=== PATIENT | female | born 1970 | race Caucasian/White ===

== ENCOUNTER 2024-10-08 16:08 | Emergency (ER) | payer BC, SELFPAY ==
[2024-10-08] VITALS (77 sets, daily range): BP systolic 74–191; BP diastolic 44–130; PULSE 52–128; RESP 11–22; TEMP 36.2–36.8; O2SAT 94–100
--- NOTE | 2024-10-08 16:00 | DI.CT_ITS ---
Exam(s) CT BRAIN NECK CTA EXAM: CT BRAIN NECK CTA CLINICAL HISTORY: L. arm weak, eval CVA. TECHNIQUE: Imaging Protocol: Axial CT angiography was performed with multi- slice acquisition and multi-planar and/or 3D reconstructions. CONTRAST MATERIAL: Intravenous: Omnipaque 350 Contrast volume:70 mL COMPARISON: No exams were available for comparison FINDINGS: CTA Neck W: Patient is intubated. Distal tip of the endotracheal 2 is above the olayinka. There is a mucous noted at the level the olayinka and within the right mainstem bronchus. Aortic arch anatomy: The aortic arch anatomy is conventional and there is no significant stenosis at the origin of the great vessels off of the aortic arch. No intimal flap evident. Anterior circulation: Both common carotid arteries ascend with normal luminal diameters. At the level the carotid bulbs and proximal internal carotid arteries there is mild plaque without hemodynamically significant stenosis evident. Internal carotid arteries are patent in the upper neck-skull base carotid canals. Posterior circulation: Both vertebral arteries originate in conventional fashion off of the subclavian arteries and there is no obvious stenosis at the origin of the vertebral arteries. Both vertebral arteries exhibit normal luminal diameters within the foramen transversarium. The left vertebral artery is dominant Both vertebral arteries contribute to the formation of the basilar artery at the skull base. CTA Brain W: Anterior circulation: Both internal carotid arteries are patent in the skull base-carotid canals as well as within the cavernous sinuses. The supraclinoid aspects of the ICAs are patent. Both A1 segments are patent as are the anterior cerebral arteries and there is no evidence of aneurysm at the level of the anterior communicating artery. Both middle cerebral arteries are patent with no evidence of significant stenosis nor intraluminal thrombus. There also no aneurysms of these vessels. Posterior circulation: The basilar artery ascends without significant stenosis. Distally gives off superior cerebellar arteries and above this level terminates as posterior cerebral arteries. There is a posterior communicating artery on the right side of the [id number]. There is no evidence of aneurysm at the tip of the basilar artery nor elsewhere in the [id number]. CT BRAIN: There is no evidence of intracranial hemorrhage, mass effect, or shift of midline structures. There are no extra-axial fluid collections. Ventricles are not enlarged or shifted. There are no ring enhancing lesions in the brain and no abnormal meningeal enhancement. There is a vertically orientated vessel extending from the right lateral ventricle to the superior sagittal sinus region. This has appearance of a probable venous angioma. No associated hemorrhage. IMPRESSION: 1. Patent carotid arteries in the neck. No hemodynamically significant stenosis. 2. Patent vertebral arteries. Left vertebral artery is dominant. No evidence of vertebral artery thrombosis nor dissection. 3. Patent intracranial arteries. 4. Right side the venous angioma incidentally noted. Report called by myself to ER physician 10/08/2024 at 5:38 p.m. RADIATION DOSE DELIVERED: 1149.14 mGy.cm Total DLP DATA REPOSITORY: All CT scans at this facility are submitted to the National Radiology Data Registry (NRDR) Dose Index Registry (DIR) with the [employer] (A[employer]). RADIATION OPTIMIZATION: All CT scans at this facility use at least one of these dose optimization techniques: automated exposure control; mA and/or kV adjustment per patient size (includes targeted exams where dose is matched to clinical indication); or iterative reconstruction.
--- NOTE | 2024-10-08 16:15 | RT.EKG_ITS ---
APPROVED REPORT Exam: Resting ECG Reason for Exam: CVA Patient Location: E HR:73 bpm ECG Measurements Heart Rate 73 AXIS DC 176 P 69 QRSd 97 QRS 0 QT 390 T [id number] QTc 431 Conclusion Sinus rhythm, rate 73 No interval abnormalities No STEMI No priors available for comparison
[2024-10-08] MEDS: Ondansetron 4 MG/2 ML VIAL (16:20)
[2024-10-08 16:24] LABS: Abs Immature Grans 0.03 10^3/uL (0.0-0.06); HCT 33.5 % (36.0-46.0); HGB 12.2 g/dL (11.2-15.7); Immature Grans % 0.4 %; MCH 30.7 pg (27.0-33.0); MCHC 36.4 % (32.0-36.0); MCV 84 fL (80-95); MPV 9.7 fL (8.0-11.0); Platelet Count 310 10^3/uL (130-400); RBC 3.98 10^6/uL (3.93-5.22); RDW 12.0 % (11.7-14.6); RDW-SD 36.7 fL; WBC 8.02 10^3/uL (4.4-10.8)
[2024-10-08] MEDS: Midazolam 5 MG/5 ML VIAL (16:24)
[2024-10-08] MEDS: Etomidate 20 MG/10 ML VIAL (16:25)
[2024-10-08 16:35] LABS: INR 1.0 (0.9-1.1); Prothrombin Time 10.3 sec (9.1-11.1)
[2024-10-08 16:48] LABS: ALT 15 U/L (14-59); AST 32 U/L (15-37); Albumin 4.3 g/dL (3.4-5.0); Alkaline Phosphatase 45 U/L (46-116); Anion Gap 15.9 mmol/L (3-11); BUN 8 mg/dL (7-18); Bilirubin, Total 1.3 mg/dL (0.2-1.0); CO2 20.1 mmol/L (21.0-32.0); Calcium 9.4 mg/dL (8.5-10.1); Chloride 85 mmol/L (98-107); Estimated GFR 86.96 (mL/min/1.73m2); Glucose 106 mg/dL (74-106); Magnesium 1.4 mg/dL (1.8-2.4); Potassium 3.4 mmol/L (3.5-5.1); TSH (W/Ref FT4) 0.19 uIU/mL (0.36-3.74); Total Protein 7.7 g/dL (6.4-8.2); Troponin I 6 ng/L (<or=51)
[2024-10-08 16:53] LABS: Sodium 121 mmol/L (136-145)
[2024-10-08] MEDS: Normal Saline Flush 10 ML SYR IVP ×2 (16:57→21:19)
[2024-10-08] MEDS: Omnipaque 350 MG/ML 100 ML BTL IJ (16:57)
[2024-10-08] MEDS: Normal Saline - Diluent 50 ML VIAL IJ (16:57)
--- NOTE | 2024-10-08 17:14 | ED.GENADUL_ITS ---
Discharge Plan Disposition Patient Disposition: Transfer-Acute Inpatient Care Specific Acute Inpt Facility: [facility] Condition: Fair Discharge Details Clinical Impression: Hyponatremia, Seizure, Endotracheally intubated, Left-sided weakness, Hypomagnesemia Primary Care Provider: Thais Seymour ED Provider: Ruma Araujo Home Meds and New Rx's Prescriptions: No Action No Known Home Meds HPI General Mode of arrival: EMS . Date/Time Provider Initiated Documentation: 10/08/24 16:19 . Limitations to Documentation: altered mental status . Information obtained by: patient, family, EMS and old records reviewed . HPI Narrative: This is a 54-year-old female patient with a history of alcohol use disorder and a reported history of alcohol withdrawal seizures, history of thyroid problems, presenting for left-sided weakness. 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 She had a sudden onset of left sided weakness with difficulty word finding and slurred speech at 3:15 PM, EMS was summoned and she was noted to be significantly hypertensive, brought in for evaluation. During their transport her left-sided weakness resolved, but her speech changes persisted. We received collateral from the patient's sister in [place], that the patient has a history of alcohol use and she has concerns that she has been drinking more heavily recently. She has a history of alcohol withdrawal seizures, unknown when the last 1 may have been. [facility] records able to be obtained, patient's medications have not been filled since 04/2023 per their records. Related Data Home Medications ?Medication ?Instructions ?Recorded ?Confirmed Unknown [No Known Home Meds] 10/08/24 0 10/08/24 Allergies Allergy/AdvReac Type Severity Reaction Status Date / Time bee venom protein (honey bee) Allergy Unknown Unknown Verified 10/08/24 16:55 Exam Narrative Exam Narrative: Initial evaluation at time of arrival: Gen: awake and alert, in no apparent distress. Appears well nourished. HEENT: PERRL, EOMs full and without nystagmus. External ears and nose normal, mucous membranes moist. Denies visual acuity changes Neck: Supple, full range of motion, no observable masses Lungs: No increased work of breathing, lung sounds clear and equal bilaterally without wheezes, rhonchi, or rales. CV: Heart with regular rate and rhythm, no murmurs auscultated. Strong and symmetrical radial pulses. Abdomen: Soft, nondistended, non-tender to palpation. No rigidity, rebound tenderness, or guarding. MSK: No joint swelling, no redness. Full ROM without limitation, no external traumatic findings. Skin: No rashes or lesions to visualized skin. Normal color, warm, and dry. Neuro: Cranial nerves II-XII intact and symmetrical bilaterally, the patient does demonstrate mild word finding difficulties and some slurring of speech. 5/5 strength in all muscle groups x4 extremities. No sensory deficits. No pronator drift Psych: Appropriate for situation. Course Vital Signs Vital signs: Vital Signs Respiratory Rate 12 10/08/24 16:27 Blood Pressure 180/129 H 10/08/24 16:27 Pulse Oximetry 98 10/08/24 16:27 Pulse 95 H 10/08/24 16:27 Respiratory Rate 12 10/08/24 16:27 Blood Pressure 180/129 H 10/08/24 16:27 Pulse Oximetry 98 10/08/24 16:27 Respiratory End-tidal CO2 40 10/08/24 16:27 Fraction of Inspired Oxygen (FIO2) 21 10/08/24 16:27 Lab/Test Results Lab/Test Results: Laboratory Tests Range/Units 10/08/24 16:10 WBC (4.4-10.8) 10^3/uL 8.02 RBC (3.93-5.22) 10^6/uL 3.98 Hgb (11.2-15.7) g/dL 12.2 Hct (36.0-46.0) % 33.5 L MCV (80-95) fL 84 MCH (27.0-33.0) pg 30.7 MCHC (32.0-36.0) % 36.4 H RDW (11.7-14.6) % 12.0 Plt Count (130-400) 10^3/uL 310 MPV (8.0-11.0) fL 9.7 Immature Gran % % 0.4 Neutrophils % % 61.8 Lymphocytes % % 26.7 Monocytes % % 7.2 Eosinophils % % 2.7 Basophils % % 1.2 Nucleated RBC % (0.0-0.3) % 0.0 Absolute Neutrophils (1.2-6.7) 10^3/uL 4.95 Absolute Lymphocytes (1.2-3.4) 10^3/uL 2.14 Absolute Monocytes (0.1-0.8) 10^3/uL 0.58 Absolute Eosinophils (0.0-0.7) 10^3/uL 0.22 Absolute Basophils (0.0-0.2) 10^3/uL 0.10 PT (9.1-11.1) sec 10.3 INR (0.9-1.1) 1.0 Sodium (136-145) mmol/L 121 L* Potassium (3.5-5.1) mmol/L 3.4 L Chloride (98-107) mmol/L 85 L Carbon Dioxide (21.0-32.0) mmol/L 20.1 L Anion Gap (3-11) mmol/L 15.9 H BUN (7-18) mg/dL 8 Creatinine (0.55-1.02) mg/dL 0.8 Est GFR (CKD-EPI 2020) (mL/min/1.73m2) 86.96 Glucose (74-106) mg/dL 106 Calcium (8.5-10.1) mg/dL 9.4 Magnesium (1.8-2.4) mg/dL 1.4 L Total Bilirubin (0.2-1.0) mg/dL 1.3 H AST (15-37) U/L 32 ALT (14-59) U/L 15 Alkaline Phosphatase (46-116) U/L 45 L Troponin I (<or=51) ng/L 6 Total Protein (6.4-8.2) g/dL 7.7 Albumin (3.4-5.0) g/dL 4.3 TSH (0.36-3.74) uIU/mL 0.19 L Procedure Airway Management Date of Procedure: 10/08/24 Time of Procedure: 16:27 Patient Consented: Emergent Case Indication: Reduced level of consciousness Provider that performed the procedure: Ruma Araujo Mallampati Class: Unable to Assess Sedation administered by provider performing procedure: Yes Sedation Given: Etomidate Route of Administration: IV. Etomidate dose(mg): 20. Preparation: patient monitor applied, pulse oximeter, capnometry used, supplemental O2 applied, suction/airway equipment at bedside and IV secured. ASA Class: I. Interventions: intubation.. Induction setup: Pt. evaluated prior to induction, Pt. Ramped, Head of Bed Elevated, NRB - High Flow and Rapid Sequence Induction Airway Type: Intubation Laryngoscopy: Atraumatic Laryngoscopy and Teeth Intact. Grade: Airway Grade: 1. Airway Blades: C-MAC 4. Endotracheal Tube: Oral and 7.5mm. Secured at(cm): 23. Placement Confirmation: Cuff inflated with minimally occlusive pressure, Secured with commercial device, Bilateral breath sounds, ETCO2 waveform present and Depth to teeth Paralytic(indicate dose given): Rocuronium (100mg) Post Induction Medication Management(indicate dose given): Managed by Requesting Provider, Propofol (mcg/kg/min) (20, titrated) and Norepinephrine IV (mcg/kg/min) Gastric Tube: Placed by Other Person Procedure Complications: None Procedure Outcome: Successful Medical Decision Making This is a 54-year-old female patient presents for evaluation of left-sided weakness and word finding difficulties. Differential includes but is not limited to stroke, intracranial hemorrhage, hypertensive emergency, press, RCVS, metabolic electrolyte derangement, kidney injury, liver disease, ACS, arterial abnormality including aneurysm or dissection. Considered alcohol intoxication and withdrawal given family report, considered thyroid storm and hypothyroidism. No reported prior seizure history to suggest Manoj's paralysis. Given the rapid presentation to care, this patient was activated as a stroke alert and as she is protecting her airway, has a fingerstick blood glucose of 117, and has secured IV access we will proceed immediately to CT imaging for CTA brain and neck. Following imaging we will obtain a twelve-lead EKG, and labs to include CBC, CMP, magnesium, troponin, INR, TSH, urinalysis. -While in the CT scanner, the patient was noted to have an episode of nonbloody emesis. 4 mg of Zofran was provided. Shortly after that the patient began to have tonic-clonic seizure activity, lasting approximately 5 to 7 minutes. 5 mg of Versed was administered intravenously and the patient was taken back to room 3 for airway management. Seizure activity stopped after Versed, though the patient remains with snoring respirations requiring jaw thrust for airway protection. The decision was made to proceed with emergent intubation given the patient's failure to protect her airway and our concern for potential serious intracranial abnormalities. RSI and intubation performed as noted above, airway successfully secured without clinical deterioration or adverse event. The patient received a total of 4 g of Keppra, and was started on propofol and fentanyl for postintubation sedation. I reviewed her CTA brain and neck, which shows no intracranial hemorrhage, large vessel occlusion, or mass effect. I reviewed the patient's laboratory studies, which were most notable for hyponatremia to 121, and a mild hypomagnesemia to 1.4. Otherwise no significant kidney or liver abnormalities, no leukocytosis or anemia, INR is 1.0, urinalysis noninfectious, ethanol negative and UDS positive only for opiates and benzos which were administered here. The patient was provided with a liter of normal saline given the delay in accessing hypertonic's as well as a slightly low blood pressure after initiating propofol. I did provide the patient with an order for norepinephrine to allow us to continue to keep her comfortable and sedated. She received Dilaudid x 2 while awaiting fentanyl drip. Hypertonic saline was administered, repeat sodium 124, I will hold on further correction so as to avoid too rapid correction in this patient without a known baseline. I consulted [facility] teleneuro who reviewed the patient, while she is in the window for thrombolysis she is unfortunately not without alternative etiologies of her symptoms, and this is not a clear-cut CVA. She is not going to be able to get rapid MRI and/or EEG in a timely fashion and so we will hold on TNK administration. I consulted [facility] medical ICU who unfortunately cannot accept the patient due to capacity. The patient was accepted by [facility], Dr. Cummings, for transfer by [facility] to their MICU for ongoing management of her hyponatremia, potential alcohol withdrawal, and intubation for airway protection. The patient remained hemodynamically improved while under my care, was transferred by air med without incident. Ruma Cobos MD Critical Care Time Critical Care Time Critical Care Time: Yes Total Critical Care Time: 90 Attestation: Upon my evaluation, this patient had a high probability of imminent or life- threatening deterioration due to seizure activity causing earlier to protect airway, hyponatremia with active seizure activity, which required my direct attention, intervention, and personal management. I have personally provided 90 minutes of critical care time exclusive of time spent on separately billable procedures. Time includes review of laboratory data, radiology results, discussion with consultants, and monitoring for potential decompensation. Interventions were performed as documented above. Ruma Araujo MD PFSH All Active Problems (Updated 10/08/24 @ 21:33 by Ruma Araujo MD) Hypomagnesemia (Acute) Left-sided weakness (Acute) Endotracheally intubated (Acute) Seizure (Acute) Hyponatremia (Acute) Social History Smoking/Tobacco Use Status: Unknown Smoking risk assessment performed?: Yes Alcohol Intake: former Substance use type: unknown
[2024-10-08] MEDS: Normal Saline 1,000 ML 1000 ML IV (17:17)
[2024-10-08] MEDS: Rocuronium 50 MG/5 ML SYR ×2 (17:35)
[2024-10-08] MEDS: HYDROmorphone 2 MG/ML SYR 1 MG IVP (17:36)
[2024-10-08] MEDS: SODIUM CHLORIDE 3% 150 ML 450 ML IV INF (17:43)
[2024-10-08] MEDS: Normal Saline 100 ML 400 ML (17:44)
[2024-10-08 18:01] LABS: Troponin I 6 ng/L (<or=51)
[2024-10-08] MEDS: levETIRAcetam 2,000 MG in Normal Saline 100 ML 400 MG IVPB (18:11)
[2024-10-08] MEDS: HYDROmorphone 2 MG/ML SYR (18:12)
[2024-10-08] MEDS: Norepinephrine in D5W 8 MG/250 ML BAG 28.1 MG IV (18:14)
[2024-10-08] MEDS: MAGNESIUM SULFATE 2 GM/50 ML BAG IV_INF (18:14)
[2024-10-08] MEDS: fentaNYL 1,000 MCG in Normal Saline 80 ML 4.1 MCG IV_INF (18:34)
[2024-10-08 18:46] LABS: Glucose Negative (Negative)
[2024-10-08] MEDS: PROPOFOL 500 MG/50 ML BTL 24.3 MG IV (18:58)
[2024-10-08 19:07] LABS: Cannabinoids THC Negative (Negative); METHADONE URINE SCREEN Negative (Negative)
[2024-10-08 19:36] LABS: BE -7 mmol/L (-2-3); HCO3 19 mmol/L (22-26)
[2024-10-08 19:40] LABS: FIO2 21 %
[2024-10-08] MEDS: PROPOFOL 1,000 MG/100 ML BTL 26.862 MG IV (19:46)
[2024-10-08] MEDS: Hydrocortisone SOD SUC. 100 MG VIAL IVP (20:36)
[2024-10-08 20:37] LABS: Sodium 124 mmol/L (136-145)
--- NOTE | 2024-10-10 11:28 | NUR.NOTE ---
Accessed Pt chart to print off the discharge summary for [facility] Emergency Department. Faxed to Thad at [phone]
== END 2024-10-08 22:03 | disposition short-term general hospital (02) ==
PROVIDERS: Emergency Provider Emergency Medicine; PCP Family Medicine
DX: R56.9 Unspecified convulsions (principal); Z97.8 Presence of other specified devices; R53.1 Weakness; E83.42 Hypomagnesemia; E87.1 Hypo-osmolality and hyponatremia
CPT/HCPCS: 31500; 36415; 36416; 51702; 70496; 70498; 80053; 80307; 82805; 82962; 93005; 96365; 96366; 96367; 96372; 96375; 99291; 36600; 80320; 81003; 83735; 84295; 84439; 84443; 84484; 85025; 85610; 93010; J1171; J1720; J1953; J2250; J2405; J2704; J3010; J3475; J3490